=== PATIENT | female | born 1985 ===

== ENCOUNTER 2019-08-05 05:30 | Inpatient (IN) | payer OTHER ==
[2019-08-05] MEDS: ELECTROLYTE-148 SOLN 1,000 ML IV SCH ×2 (06:15→08:30)
--- NOTE | 2019-08-05 06:18 | HP ---
Past Medical History - Primary Care Physician PCP:: Veto Sarmiento - Admission Chief Complaint: 34 yo @ 40.1 wks presents to LD c/o leaking clear fluid since 4:30 am this morning History of Present Illness: Pt 34 yo EDC 08/04/2019, EGA 40.1 wks presents to LD c/o leaking clear AF since 4:30 am. History Source: Patient Limitations to Obtaining History: No Limitations - Past Medical History ...: 2 ...Para: 1 ... Weeks Gestation by Dates: 40.1 ...EDC by Dates: 08/04/19 ...EDC by Sono: 08/04/19 - Past Surgical History Past Surgical History: Yes: None Hx Myomectomy: No Hx Transabdominal Cerclage: No - Smoking History Smoking history: Never smoked Have you smoked in the past 12 months: No - Alcohol/Substance Use Hx Alcohol Use: No History of Substance Use: reports: None - Social History Usual Living Arrangement: Yes: With Spouse History of Recent Travel: No Home Medications - Allergies Allergies/Adverse Reactions: Allergies Allergy/AdvReac Type Severity Reaction Status Date / Time No Known Allergies Allergy Verified 08/05/19 06:14 - Home Medications Home Medications: Ambulatory Orders Vitamins (Sjr) - 1 tab PO DAILY 08/05/19 Family Medical History Family History: Unremarkable Review of Systems - Review of Systems Constitutional: reports: No Symptoms Eyes: reports: No Symptoms HENT: reports: No Symptoms Neck: reports: No Symptoms Cardiovascular: reports: No Symptoms Respiratory: reports: No Symptoms Gastrointestinal: reports: No Symptoms Genitourinary: reports: No Symptoms, Pain Breasts: reports: No Symptoms Reported Musculoskeletal: reports: No Symptoms Integumentary: reports: No Symptoms Neurological: reports: No Symptoms Endocrine: reports: No Symptoms Hematology/Lymphatic: reports: No Symptoms Psychiatric: reports: No Symptoms Pain Intensity: 2 Physical Exam - Maternity Constitutional: Yes: Well Nourished, No Distress Eyes: Yes: WNL HENT: Yes: WNL Neck: Yes: WNL Cardiovascular: Yes: WNL Lungs: Clear to auscultation Breast(s): Yes: WNL - Abdominal Exam/OB Fundal Height: 38 Presentation: Vertex Contractions: Yes Regularity: Irregular Intensity: Mild Heart Rate (range): 140 Heart Rate Location: LUQ Category: I Accelerations: Uniform - Vaginal Exam/OB Vaginal Bleeding: No Dilatation (cm): 3-4 Effacement (%): 80 Amniotic Membrane Status: Ruptured Nitrazine Test: Positive Amniotic Fluid: Yes: Clear Presentation: Vertex/Position Station: -1 - Physical Exam Musculoskeletal: Yes: WNL Extremities: Yes: WNL Edema: No Hemorrhage Risk Assessment - Risk Factors Risk Score: 0 Risk Level: Low Risk Problem List - Problems (1) 40 weeks gestation of Code(s): Z3A.40 - 40 WEEKS GESTATION OF (2) SROM (spontaneous rupture of membranes) Code(s): KKF7344 - Assessment/Plan Admit to LD Anticipate
[2019-08-05] MEDS ORDERED: OXYTOCIN 30 UNITS in 0.9% NS 30 UNIT/500 ML INFUS.BAG IVPB SCH (06:30)
[2019-08-05 06:37] VITALS: BMI 28.3
[2019-08-05] MEDS ORDERED: OXYTOCIN 30 UNITS in 0.9% NS 30 UNIT/500 ML INFUS.BAG IVPB ONE (07:06)
[2019-08-05 07:13] LABS: INR 0.88 (0.83-1.09); PROTHROMBIN TIME (PATIENT) 10.4 SEC (9.7-13.0)
[2019-08-05 07:15] LABS: ACTIVATED PTT 25.7 SECONDS (25.2-36.5)
[2019-08-05 07:24] LABS: BASO % 0.6 % (0-2.0); EOS % 1.2 % (0-4.5); HEMOGLOBIN 12.1 GM/dL (10.7-15.3); LYMPH % 21.5 % (8-40); MCH 31.7 pg (25.7-33.7); MCHC 33.5 g/dl (32.0-36.0); MEAN CELL VOLUME 94.7 fl (80-96); MEAN PLT VOLUME 8.1 fl (7.5-11.1); MONO % 8.5 % (3.8-10.2); NEUT % 68.2 % (42.8-82.8); PLATELET COUNT 206 K/MM3 (134-434); RDW 13.1 % (11.6-15.6)
[2019-08-05 07:41] LABS: BLOOD UREA NITROGEN 6.8 mg/dL (7-18); CALCIUM 8.8 mg/dL (8.5-10.1); CREATININE 0.4 mg/dL (0.55-1.3)
[2019-08-05] MEDS ORDERED: FENTANYL/BUPIVACAINE/NS/PF - PCEA - 50 ML DISP.SYRIN EP ONE (07:50)
[2019-08-05] MEDS ORDERED: PCA PUMP NR ONE (07:50)
[2019-08-05] MEDS ORDERED: BUPIVACAINE HCL/PF 0.25% (2.5MG/ML) 10 ML VIAL ONE (07:59)
[2019-08-05] MEDS ORDERED: NALOXONE HCL 0.4 MG/ML VIAL IVPUSH PRN (08:53)
[2019-08-05] MEDS ORDERED: FENTANYL/BUPIVACAINE/NS/PF - PCEA - 50 ML DISP.SYRIN EP SCH ×2 (09:00→09:03)
[2019-08-05] MEDS ORDERED: OXYTOCIN 20 UNITS in 0.9% NS 20 UNIT/1,000 ML INFUS.BAG IV ONE (09:14)
[2019-08-05] MEDS ORDERED: LIDOCAINE HCL 1% PRESERVATIVE FREE - 30ML VIAL ONE (09:14)
--- NOTE | 2019-08-05 10:18 | PN ---
Delivery - Delivery Vaginal Delivery: No Problems, Spontaneous Type of Anesthesia: Epidural Episiotomy/Laceration: Midline EBL (cc): 400 Delivery, Single - Stages of Labor Placenta: Yes: Spontaneous - Condition of Infant Seed Yeast Operator/Pharmacy Grad Intern Present: No Infant Gender: Male Position: OA (Placenta and membranes complete 9/9 Cord gases and blood colected) - [place] Feeding Plan Initial Plan: Elected not to breastfeed exclusively throughout hospitalization
[2019-08-05] MEDS ORDERED: BENZOCAINE 20% 57 GM BOTTLE TP PRN (10:19)
[2019-08-05] MEDS ORDERED: METHYLERGONOVINE MALEATE 0.2 MG/1 ML AMP IM PRN (10:19)
[2019-08-05] MEDS ORDERED: BENZOCAINE 28 GM HEMORRHOIDAL OINTMENT TP PRN (10:19)
[2019-08-05] MEDS ORDERED: WITCH HAZEL 50% (TUCKS) 40 PAD/JAR PAD TP PRN (10:19)
[2019-08-05] MEDS ORDERED: BISACODYL 10 MG SUPP.RECT RC PRN (10:19)
[2019-08-05] MEDS ORDERED: D5W-LR W/ 20 UNITS OXYTOCIN 20 UNIT/1,000 ML INFUS.BAG IV SCH (10:30)
[2019-08-05 10:33] LABS: CORD BASE EXCESS -5.4 mmol/L (0-2); CORD PCO2 34.4 mmHg (30-78); CORD pH 7.36 (7.14-7.44)
[2019-08-05] MEDS: ACETAMINOPHEN 325 MG TABLET (FP) PO PRN (20:00)
[2019-08-05] MEDS: IBUPROFEN 600 MG TABLET (FP) PO PRN (20:01)
[2019-08-06 08:49] LABS: BASO % 0.5 % (0-2.0); EOS % 0.6 % (0-4.5); HEMATOCRIT 32.8 % (32.4-45.2); LYMPH % 22.2 % (8-40); MCHC 33.6 g/dl (32.0-36.0); MEAN CELL VOLUME 95.2 fl (80-96); MONO % 6.1 % (3.8-10.2); NEUT % 70.6 % (42.8-82.8); PLATELET COUNT 183 K/MM3 (134-434); RBC 3.45 M/mm3 (3.60-5.2); RDW 12.9 % (11.6-15.6); WHITE BLOOD COUNT 10.3 K/mm3 (4.0-10.0)
[2019-08-06 09:07] LABS: POC NITRAZINE POS
[2019-08-06] MEDS: ACETAMINOPHEN 325 MG TABLET (FP) PO PRN (09:59)
[2019-08-06] MEDS ORDERED: DIPHTH,PERTUSS(ACELL),TET 0.5 ML DISP.SYRIN IM ONE (10:00)
[2019-08-06] MEDS: IBUPROFEN 600 MG TABLET (FP) PO PRN (10:00)
[2019-08-06] MEDS ORDERED: PRENATAL VITAMINS W/ FOLIC ACID TABLET (FP) PO SCH (10:00)
[2019-08-06 10:56] VITALS: BP 107/59; PULSE 83; TEMP 97.9
--- NOTE | 2019-08-06 11:52 | DS ---
Physical Exam-PASTRY FINISHER Vital Signs: Vital Signs Temperature 97.9 F 08/06/19 10:00 Pulse Rate 83 08/06/19 10:00 Respiratory Rate 20 08/06/19 10:00 Blood Pressure 107/59 L 08/06/19 10:00 O2 Sat by Pulse Oximetry (%) 84 L 08/05/19 09:30 Constitutional: Yes: Well Nourished, No Distress Eyes: Yes: WNL HENT: Yes: WNL Neck: Yes: WNL Cardiovascular: Yes: WNL Respiratory: Yes: WNL Gastrointestinal: Yes: WNL ...Rectal Exam: Yes: WNL Renal/: Yes: WNL Labs: CBC, BMP 08/06/19 08:15 08/05/19 06:30 Delivery - Delivery Vaginal Delivery: No Problems, Spontaneous Type of Anesthesia: Epidural Episiotomy/Laceration: Midline, Right Mediolateral EBL (cc): 400 Delivery, Single - Stages of Labor Date 1st Stage Initiatied: 08/05/19 Time 1st Stage Initiated: 08:00 Date 2nd Stage Initiated: 08/05/19 Time 2nd Stage Initiated: 09:25 Date of Delivery: 08/05/19 Time of Delivery: 09:47 Time Placenta Delivered: 09:52 Placenta: Yes: Spontaneous - Condition of Cloth Mercerizer Operator/Green Chain Puller Present: No Gender: Male Weight: 3.203 kg Position: OA Total Hours ROM (Hrs/Mins): 5h22m - 1 Minute Total Score: 9 5 Minutes Total Score: 9 - [place] Feeding Plan Initial Plan: Elected not to breastfeed exclusively throughout hospitalization Discharge Summary Problems reviewed: Yes Reason For Visit: LABOR ADMIT Current Active Problems 40 weeks gestation of (Acute) SROM (spontaneous rupture of membranes) (Acute) Procedures: Principal: Condition: Good - Instructions Diet, Activity, Other Instructions: Regular diet Activity as tolerated Pelvic rest Disposition: HOME - Home Medications Comprehensive Discharge Medication List: Ambulatory Orders Vitamins (Sjr) - 1 tab PO DAILY 08/05/19 Motrin 600 mg q 6 hrs/prn
--- NOTE | 2019-08-06 11:54 | PN ---
Post Progress Note Type of Delivery: Vital Signs: Vital Signs Temperature 97.9 F 08/06/19 10:00 Pulse Rate 83 08/06/19 10:00 Respiratory Rate 20 08/06/19 10:00 Blood Pressure 107/59 L 08/06/19 10:00 O2 Sat by Pulse Oximetry (%) 84 L 08/05/19 09:30 Breast Exam: Yes: Soft, Engorged Uterus: Yes: Fundus Firm, Fundus below umbilicus Abdomen/GI: Yes: Abdomen soft Lochia: Yes: Rubra Lochia, amount: Small Perineum: Yes: Episiotomy Activity: Ambulating - Labs Labs: CBC WBC 10.3 K/mm3 (4.0-10.0) H 08/06/19 08:15 RBC 3.45 M/mm3 (3.60-5.2) L 08/06/19 08:15 Hgb 11.0 GM/dL (10.7-15.3) 08/06/19 08:15 Hct 32.8 % (32.4-45.2) 08/06/19 08:15 MCV 95.2 fl (80-96) 08/06/19 08:15 MCH 32.0 pg (25.7-33.7) 08/06/19 08:15 MCHC 33.6 g/dl (32.0-36.0) 08/06/19 08:15 RDW 12.9 % (11.6-15.6) 08/06/19 08:15 Plt Count 183 K/MM3 (134-434) 08/06/19 08:15 MPV 8.0 fl (7.5-11.1) 08/06/19 08:15 Absolute Neuts (auto) 7.3 K/mm3 (1.5-8.0) 08/06/19 08:15 Neutrophils % 70.6 % (42.8-82.8) 08/06/19 08:15 Lymphocytes % 22.2 % (8-40) 08/06/19 08:15 Monocytes % 6.1 % (3.8-10.2) 08/06/19 08:15 Eosinophils % 0.6 % (0-4.5) 08/06/19 08:15 Basophils % 0.5 % (0-2.0) 08/06/19 08:15 Nucleated RBC % 0 % (0-0) 08/06/19 08:15 Problem List - Problems (1) 40 weeks gestation of Assessment/Plan: Code(s): Z3A.40 - 40 WEEKS GESTATION OF (2) SROM (spontaneous rupture of membranes) Code(s): [id number] - Assessment/Plan Pt stable May go home F/U in 4-6 weeks
== END 2019-08-06 12:50 | disposition home or self-care (01) | DRG 807 ==
LOC: JLDR 05:30 → J3W 11:13
PROVIDERS: ADMIT Obstetrics & Gynecology; ATTEND Obstetrics & Gynecology
PROC: 10E0XZZ Delivery of Products of Conception, External Approach (ICD-10-PCS; principal; 2019-08-05)
PROC: 0W8NXZZ Division of Female Perineum, External Approach (ICD-10-PCS; 2019-08-05)
DX: O80 Encounter for full-term uncomplicated delivery (principal); Z3A.40 40 weeks gestation of pregnancy; Z37.0 Single live birth
CPT/HCPCS: 36415; 36600; 59409; 80048; 82803; 83986-QW; 85025; 85610; 85730; 86780; 86850; 86900; 86901; 90715; U0003